=== PATIENT | female | born 1975 | race Caucasian/White ===

== ENCOUNTER 2019-12-25 15:03 | Emergency (ER) | payer OTHER, SELFPAY ==
[2019-12-25] VITALS (7 sets, daily range): BP systolic 120–152; BP diastolic 68–96; PULSE 80–119; RESP 15–20; TEMP 36.8; O2SAT 97–100; BMI 26.6
--- NOTE | 2019-12-25 15:32 | ED_ITS ---
HPI - Abdominal Pain General Chief Complaint: Abdominal Pain Stated Complaint: Pain in gall bladder/appendix Time Seen by Provider: 12/25/19 15:31 Source: patient Mode of arrival: Ambulatory Limitations: no limitations History of Present Illness HPI narrative: CC: epigastric pain HPI: The patient is a 44-year-old female who was seen in the walk-in clinic and after physical exam was thought to have right lower quadrant abdominal tenderness and was sent to the emergency department for an evaluation for possible appendicitis. The patient states that yesterday while at work at approximately 9:00 a.m. she had sharp what she thought was a hunger pain in the center of her abdomen which was partially relieved with eating. However as the day progressed the pain became much worse. The patient describes the discomfort as an a dull achy discomfort that is intermittently sharp. When it is sharp the pain is 10/10 in intensity otherwise it is 6 to 7/10 in intensity. Her discomfort originates in the epigastrium and radiates up into her chest. There is no radiation to her neck jaw shoulders arms. She has had intermittent sweats and chills associated with but no fevers. She denies any fall or injury. The p atient has some mild shortness of breath associated with the discomfort no cough. The only chest pain she is experiences that which radiates up into her chest. She has indigestion and heartburn periodically. She denies ever being told that she had pancreatitis gallstones or an ulcer. She has had no diabetes hypertension myocardial infarction COPD or asthma. She admits to smoking cigarettes rarely drinks alcohol in 2 days ago was using marijuana. Her last bowel movement was yesterday which was normal. She denies any nausea or vomiting diarrhea melena or hematochezia. She has had no troubles urinating. t Related Data Previous Rx's Medication Instructions Recorded dicyclomine 20 mg PO QID PRN #20 tab 12/25/19 hydrocodone-acetaminophen [[place]] 1 tab PO Q6H PRN #10 tab 12/25/19 nitrofurantoin monohyd/m-cryst 100 mg PO Q12H 7 Days #14 cap 12/25/19 [Macrobid] ondansetron HCl [Zofran] 4 mg PO Q6H PRN #12 tab 12/25/19 pantoprazole [Protonix] 40 mg PO DAILY #20 tab 12/25/19 sucralfate [Carafate] 10 ml PO QID PRN #420 ml 12/25/19 Allergies Allergy/AdvReac Type Severity Reaction Status Date / Time Sulfa (Sulfonamide Allergy Verified 12/25/19 15:16 Antibiotics) Review of Systems Review of Systems Narrative: Patient's review of systems were all negative except for those mentioned in the history of present illness. Patient History Medical History Abdominal pain (Acute) Social History Smoking Status: Current every day smoker Smoking Status: Current every day smoker alcohol intake frequency: holidays/special occasions only Substance Use Type: does not use Exam Narrative Exam Narrative: PHYSICAL EXAM: CONSTITUTIONAL: Awake, Alert, Oriented, Coherent, Cooperative. The patient does not appear to be in any acute distress but she seems to have difficulty in mov ing and sitting up in lying down with discomfort in the epigastrium. She does not appear toxic or ill at this time. HEAD: AT/NC EENT: PERRL, FROM of eyes, no discharge or drainage. NOSE:No epistaxis or nasal drainage MOUTH:Oral mucosa is moist and pink, NECK: Supple, no obvious JVD, Trachea is midline without stridor, no palpable LN. SPINE: Palpation of the cervical, Thoracic, Lumbar or Sacral spine reveals no gross deformity or tenderness. No CVA tenderness. THORAX: No deformity, retractions, chest wall tenderness. LUNGS: Clear, symmetrical breath sounds without respiratory distress. HEART: Normal heart tones, regular rhythm and rate without murmur. ABDOMEN: Soft tender with mild guarding in the epigastrium. Bowel sounds are normal. There is no palpable mass noted. EXTREMITIES: No edema, deformity, or tenderness. SKIN: No rash, bruising, petechiae or purpura. NEURO: Awake, alert, oriented, conversive, cranial nerves II-XII are symmetrical , moves all 4 extremities and is ambulatory. MENTAL HEALTH: Does not appear anxious or depressed. Initial Vital Signs Initial Vital Signs: Vital Signs Temperature 98.2 F 12/25/19 15:16 Pulse Rate 119 H 12/25/19 15:16 Respiratory Rate 15 12/25/19 15:16 Blood Pressure 133/96 H 12/25/19 15:16 Pulse Oximetry 98 07/25/20 15:16 Course Course Course Narrative: 1610: The patient is refusing the CT scan and prefers having an ultrasound to check her gallbladder out. The patient refused the chest x- ray. The patient was informed that if the ultrasound is negative for gallstones we may need to perform a CT scan of her abdomen. 1709: On physical exam the patient is not tender in the right lower quadrant or left lower quadrant. The patient initially refused to have a CT scan performed. The patient's ultrasound revealed no evidence of gallstones. However the pancreatic duct appeared to be dilated and she was unable to visua lize the tail of the pancreas. The patient's lipase and liver function tests are all within normal limits. The patient was initially administered pantoprazole for questionable reflux esophagitis and GERD. Her pain is coming back. Her pain an issue the became worse with morphine and Zofran. She will be administered 1 mg of Dilaudid IV 1 g of Carafate as an oral suspension followed by GI cocktail at which time her abdominal pain will be reassessed. 1749: The patient remains very painful holding her epigastrium and upper abdomen. A CT scan of the abdomen with IV contrast has been ordered. 1752: The patient has been very resistant to ordering and performing test to evaluate her pain and discomfort. Troponin will be ordered on the patient as well as repeat EKG to make sure that this is not an atypical presentation of coronary ischemia. A CT scan of the abdomen with IV contrast has been ordered to evaluate the patient's small-bowel: And of vasculature as to causing her pain and discomfort. 1827: The patient's urinalysis is consistent with a urinary tract infection. The patient's ultrasound of her gallbladder and right upper quadrant/ epigastrium revealed: IMPRESSION: 1. No evidence of cholecystitis. 2. Pancreatic ductal dilatation. Finding may indicate underlying neoplasm. Non emergent Gastroenterology consultation recommended. 3. Small hepatic hemangioma. 1850: The CT of the patient's abdomen revealed: IMPRESSION: 1. Non-specific mildly prominent loops of small bowel in the left upper abdomen. No transition point to suggest obstruction. 2. No free fluid. No pneumoperitoneum. 3. Pancreatic duct is minimally prominent similar to the recent ultrasound. Clinical significance of this finding is uncertain. No intrahepatic biliary ductal dilatation. 4. Hypoechoic focus in the right lobe which likely corresponds to the echogenic focus seen on prior ultrasound. This most likely represents a benign hemangioma. -If clinically indicated this can be confirmed with multiphase liver CT or MRI. 5. Small nodule at the anterior bladder dome measuring 1.1 cm. -This is indeterminate. This could represent a small neoplasm versus urachal remnant. Prior CT comparison is would be helpful if available for comparison. This may be further evaluated with ultrasound or MRI. Orders Ordered: Discontinued Medications Al Hydrox/Mg Hydrox/Simethicone 20 ml/ Lidocaine HCl 15 ml 0 ml PO NOW ONE Stop: 12/25/19 17:08 Last Admin: 12/25/19 17:33 Dose: 1 ml Documented by: MARLO Dicyclomine HCl (Bentyl) 20 mg PO NOW ONE Stop: 12/25/19 17:48 Last Admin: 12/25/19 18:30 Dose: 20 mg Documented by: MARLO Sodium Chloride (Normal Saline 0.9%) 1,000 mls @ 1,000 mls/hr IV BOLUS ONE Stop: 12/25/19 18:10 Last Infusion: 12/25/19 19:22 Dose: 0 mls/hr Documented by: Admin: 12/25/19 17:13 Dose: 1,000 mls/hr Documented by: SALVATORE Morphine Sulfate (Morphine) 4 mg IV NOW ONE Stop: 12/25/19 15:48 Last Admin: 12/25/19 15:55 Dose: 4 mg Documented by: POONAM Nitrofurantoin Macrocrystals (Macrobid 100 Mg Capsule) 100 mg PO NOW ONE Stop: 12/25/19 18:30 Last Admin: 12/25/19 18:32 Dose: 100 mg Documented by: MARLO Ondansetron HCl (Zofran) 4 mg IV NOW ONE Stop: 12/25/19 15:48 Last Admin: 12/25/19 15:55 Dose: 4 mg Documented by: POONAM Pantoprazole Sodium (Protonix) 40 mg IV NOW ONE Stop: 12/25/19 15:48 Last Admin: 12/25/19 15:55 Dose: 40 mg Documented by: POONAM Sucralfate (Carafate) [address] [facility] Last Admin: 12/25/19 17:16 Dose: 1 gm Documented by: SALVATORE Vital Signs Vital signs: Vital Signs - 8 hr 12/25/19 15:16 12/25/19 17:07 12/25/19 17:08 Temperature 98.2 F Pulse Rate 119 H 89 92 H Respiratory Rate 15 Blood Pressure 133/96 H 148/68 H Pulse Oximetry 98 99 99 12/25/19 17:30 12/25/19 18:11 12/25/19 18:30 Temperature Pulse Rate 82 80 84 Respiratory Rate Blood Pressure 120/68 Pulse Oximetry 97 99 97 MDM - Abdominal Pain Medical Records Attestation: I reviewed the patient's medical records. Lab Data Attestation: I reviewed the patient's lab results. Result diagrams: 12/25/19 15:30 12/25/19 15:30 Labs: Lab Results 12/25/19 12/25/19 12/25/19 Range/Units 15:18 15:30 15:30 WBC 10.8 (4.5-11.0) X10^3/uL RBC 4.47 (4.0-5.2) X10^6/uL Hgb 14.5 (12.0-16.0) g/dL Hct 42.3 (36-46) % MCV 94.6 (80-100) fL MCH 32.3 (26-34) PG MCHC 34.2 (30-36) % RDW 13.3 (11.6-14.8) % Plt Count 303 (150-400) X10^3/uL Neut % (Auto) 76.5 H (50-75) % Lymph % (Auto) 18.7 L (25-40) % [place] % (Auto) 3.4 (3-14) % Eos % (Auto) 0.6 L (2-4) % Baso % (Auto) 0.8 (0-2) % Neut # (Auto) 8200 H (8926-9852) /uL Lymph # (Auto) 2000 (8164-6359) /uL [place] # (Auto) 400 (0-900) /uL Eos # (Auto) 100 (0-450) /uL Baso # (Auto) 100 (0-100) /uL PT 11.2 (10.1-12.7) SECONDS INR 1.0 (0.9-1.3) APTT 30 (26.4-36.2) SECONDS Sodium (137-145) mmol/L Potassium (3.4-5.1) mmol/L Chloride (98-107) mmol/L Carbon Dioxide (22-32) mmol/L BUN (7-17) mg/dL Creatinine (0.52-1.04) mg/dL Estimated GFR (>60) mL/min BUN/Creatinine Ratio (6-22) Glucose (70-100) mg/dL Calcium (8.4-10.2) mg/dL Total Bilirubin (0.2-1.3) mg/dL AST (14-36) IU/L ALT (<35) IU/L Alkaline Phosphatase (38-126) U/L Total Creatine Kinase (30-135) U/L CK-MB (CK-2) CK-MB (CK-2) Rel Index Troponin I (0.01-0.034) ng/mL Total Protein (6.3-8.2) g/dL Albumin (3.5-5.0) g/dL Globulin (1.7-4.1) g/dL Albumin/Globulin Ratio (1.0-2.8) Lipase (23-300) U/L Urine RBC 1-5/hpf (0-5/HPF) Urine WBC 5-10/hpf H (0-5/HPF) Ur Squamous Epith Cells 1-5 /hpf (0-5/HPF) Calcium Oxalate Crystal Occasional H Amorphous Sediment 1+ Urine Bacteria Many (>30) H (None) Urine Mucus 1+ H (Negative) Ur Culture Indicated? Specimen cultured 12/25/19 12/25/19 Range/Units 15:30 18:20 WBC (4.5-11.0) X10^3/uL RBC (4.0-5.2) X10^6/uL Hgb (12.0-16.0) g/dL Hct (36-46) % MCV (80-100) fL MCH (26-34) PG MCHC (30-36) % RDW (11.6-14.8) % Plt Count (150-400) X10^3/uL Neut % (Auto) (50-75) % Lymph % (Auto) (25-40) % [place] % (Auto) (3-14) % Eos % (Auto) (2-4) % Baso % (Auto) (0-2) % Neut # (Auto) (1630-1481) /uL Lymph # (Auto) (4830-7182) /uL [place] # (Auto) (0-900) /uL Eos # (Auto) (0-450) /uL Baso # (Auto) (0-100) /uL PT (10.1-12.7) SECONDS INR (0.9-1.3) APTT (26.4-36.2) SECONDS Sodium 137 (137-145) mmol/L Potassium 3.6 (3.4-5.1) mmol/L Chloride 105 (98-107) mmol/L Carbon Dioxide 26 (22-32) mmol/L BUN 9 (7-17) mg/dL Creatinine 0.68 (0.52-1.04) mg/dL Estimated GFR > 60.0 (>60) mL/min BUN/Creatinine Ratio 13.2 (6-22) Glucose 123 H (70-100) mg/dL Calcium 10.1 (8.4-10.2) mg/dL Total Bilirubin 0.5 (0.2-1.3) mg/dL AST 26 (14-36) IU/L ALT 19 (<35) IU/L Alkaline Phosphatase 60 (38-126) U/L Total Creatine Kinase 57 (30-135) U/L CK-MB (CK-2) TNP CK-MB (CK-2) Rel Index TNP Troponin I < 0.012 (0.01-0.034) ng/mL Total Protein 7.0 (6.3-8.2) g/dL Albumin 4.5 (3.5-5.0) g/dL Globulin 2.5 (1.7-4.1) g/dL Albumin/Globulin Ratio 1.8 (1.0-2.8) Lipase 41 (23-300) U/L Urine RBC (0-5/HPF) Urine WBC (0-5/HPF) Ur Squamous Epith Cells (0-5/HPF) Calcium Oxalate Crystal Amorphous Sediment Urine Bacteria (None) Urine Mucus (Negative) Ur Culture Indicated? Point of care testing: Urine Dip Bedside Urine Glucose Negative Bedside Urine Bilirubin + 1 Bedside Urine Ketone + 15 Urine Specific [place] 1.025 Bedside Urine Occult Blood +++ Bedside Urine pH 6.0 Bedside Urine Protein - Negative Bedside Urine Urobilinogen - Negative Bedside Urine Nitrite + Positive Bedside Urine Leukocytes + 70 Esterase ECG Data Attestation: I personally reviewed and interpreted this ECG as follows: Interpretation: 1533: The patient's EKG obtained at 3:22 p.m. reveals a normal sinus rhythm with a ventricular rate of 85 intervals are normal QTC is 442 milliseconds axis is normal. The patient has no acute diagnostic ST segment changes. The EKG otherwise looks normal. Because of the patient's persistent pain and discomfort in the epigastrium a repeat EKG was obtained as well as a troponin to rule out the possibility that the patient may be experiencing inferior wall ischemia. Her 2nd EKG obtained at 6:12 p.m. revealed a normal sinus rhythm with a ventricular rate of 73 her intervals were normal with a QTC of 436 milliseconds her axis is normal. The patient had a biphasic T-wave in lead V1 and V2 with Q-waves in V1 and V2 this suggests that the patient has a and septal NH age indeterminate. The patient has a small R-wave in V3. Discharge Plan Departure Patient Disposition: Home Clinical Impression: Epigastric abdominal pain, Atypical chest pain Acute gastritis Qualifiers: Gastritis type: unspecified gastritis Gastritis bleeding: without bleeding Qualified Code(s): K29.00 - Acute gastritis without bleeding Urinary tract infection Qualifiers: Urinary tract infection type: site unspecified Hematuria presence: without hematuria Qualified Code(s): N39.0 - Urinary tract infection, site not specified Discharge Date/Time: 12/25/19 19:23 Instructions: [place] Diet, DI for Gastritis, DI for Abdominal Pain-Adult Activity Restrictions/Additional Instructions: 1. You need to follow-up with your primary care physician to be referred to a office services representative for possible scoping of your stomach and colon. 2. If you develop worsening severe pain and discomfort, uncontrolled nausea and vomiting unable to keep liquids or medications down, profuse diarrhea, vomiting blood, rectal bleeding or black tarry stools, dizziness, lightheadedness, fever, worsening chest pain passing-out you need to return to the emergency department or proceed to the nearest emergency department. 3. Take the Bentyl as prescribed for abdominal pain and cramps. 4. Take the Protonix as prescribed to help decrease the acid secretion which can cause should have increased pain and discomfort. 5. Take the Carafate whenever your having epigastric pain and discomfort up to 4 times per day as prescribed 6. Take the Zofran up to 4 times per day as necessary for nausea and vomiting. If you develop worsening pain and discomfort that is uncontrolled by these medications you need to return to the emergency department to be further evaluat ed. Prescriptions: New sucralfate [Carafate] 100 mg/mL suspension 10 ml PO QID PRN (Reason: abdominal pain idigestion and heart burn) Qty: 420 RF: 0 pantoprazole [Protonix] 40 mg tablet,delayed release (DR/EC) 40 mg PO DAILY Qty: 20 RF: 0 dicyclomine 20 mg tablet 20 mg PO QID PRN (Reason: abdominal pain and cramps) Qty: 20 RF: 0 ondansetron HCl [Zofran] 4 mg tablet 4 mg PO Q6H PRN (Reason: nausea and vomiting) Qty: 12 RF: 0 nitrofurantoin monohyd/m-cryst [Macrobid] 100 mg capsule 100 mg PO Q12H 7 Days Qty: 14 RF: 0 hydrocodone-acetaminophen [[place]] 5-325 mg tablet 1 tab PO Q6H PRN (Reason: pain) Qty: 10 RF: 0 Referrals: Kal Alves MD [Primary Care Provider] -
[2019-12-25 15:36] LABS: Add Manual Diff / Slide Review NO; Basophils Absolute Auto 100 /uL (0-100); Basophils Percent Auto 0.8 % (0-2); Eosinophils Absolute Auto 100 /uL (0-450); Eosinophils Percent Auto 0.6 % (2-4); Hematocrit 42.3 % (36-46); Hemoglobin 14.5 g/dL (12.0-16.0); Lymphocytes Absolute Auto 2000 /uL (1100-4500); Lymphocytes Percent Auto 18.7 % (25-40); Mean Corpuscular HGB Conc 34.2 % (30-36); Mean Corpuscular Hemoglobin 32.3 PG (26-34); Mean Corpuscular Volume 94.6 fL (80-100); Monocytes Absolute Auto 400 /uL (0-900); Monocytes Percent Auto 3.4 % (3-14); Neutrophils Absolute Auto 8200 /uL (1500-7000); Neutrophils Percent Auto 76.5 % (50-75); Platelet Count 303 X10^3/uL (150-400); Red Blood Cell Count 4.47 X10^6/uL (4.0-5.2); Red Cell Distribution Width 13.3 % (11.6-14.8); White Blood Cell Count 10.8 X10^3/uL (4.5-11.0)
[2019-12-25 15:45] LABS: Prothrombin Time 11.2 SECONDS (10.1-12.7)
[2019-12-25 15:47] LABS: PTT Partial Thromboplastin Tim 30 SECONDS (26.4-36.2)
[2019-12-25 15:49] LABS: Alanine Aminotransferase 19 IU/L (<35); Albumin 4.5 g/dL (3.5-5.0); Albumin Globulin Ratio 1.8 (1.0-2.8); Alkaline Phosphatase 60 U/L (38-126); Aspartate Aminotransferase 26 IU/L (14-36); BUN Creatinine Ratio 13.2 (6-22); Bilirubin Total 0.5 mg/dL (0.2-1.3); Blood Urea Nitrogen 9 mg/dL (7-17); Calcium 10.1 mg/dL (8.4-10.2); Carbon Dioxide 26 mmol/L (22-32); Chloride 105 mmol/L (98-107); Estimated Glomerular Filt Rate > 60.0 mL/min (>60); Globulin 2.5 g/dL (1.7-4.1); Glucose 123 mg/dL (70-100); HEMOLYSIS < 15 (0-50); Lipase 41 U/L (23-300); Potassium 3.6 mmol/L (3.4-5.1); Sodium 137 mmol/L (137-145)
[2019-12-25] MEDS: MORPHINE 4 MG/ML INJ IV (15:55)
[2019-12-25] MEDS: ONDANSETRON 4 MG/2 ML INJ IV (15:55)
[2019-12-25] MEDS: PANTOPRAZOLE 40 MG VIAL IV (15:55)
--- NOTE | 2019-12-25 16:08 | DI.US.S_ITS ---
PROCEDURE: US ABDOMEN LIMITED INDICATIONS: EPIGASTRIC PAIN, RADIATING INTO CHEST, R/O GALLSTONES TECHNIQUE: Real-time scanning was performed of the abdominal and retroperitoneal organs, with image documentation. COMPARISON: None. FINDINGS: Liver is normal in size . There is a 9 mm hyperechoic focus within the right hepatic lobe posterior inferiorly. No biliary ductal dilatation. Gallbladder is within normal limits. Pancreatic duct is mildly distended at 3.6 mm. IMPRESSION: 1. No evidence of cholecystitis. 2. Pancreatic ductal dilatation. Finding may indicate underlying neoplasm. Non emergent Gastroenterology consultation recommended. 3. Small hepatic hemangioma. Dictated by: Kathi Oreilly M.D. on 12/25/2019 at 16:22 Approved by: Katih Oreilly M.D. on 12/25/2019 at 16:24
[2019-12-25] MEDS: HYDROMORPHONE 1 MG INJ (17:12)
[2019-12-25 17:13] LABS: Amorphous Sediment Urine 1+; Bacteria Urine Many (>30); Calcium Oxalate Crystals Urine Occasional; Mucus Urine 1+ (Negative); RBC Urine 1-5/HPF (0-5/HPF); Squamous Epithelial Cell Urine 1-5 /HPF (0-5/HPF); WBC Urine 5-10/HPF (0-5/HPF)
[2019-12-25] MEDS: SODIUM CHLORIDE 0.9% 1,000 ML 1000 ML IV (17:13)
[2019-12-25 17:14] LABS: Culture Indicated Urine Specimen Cultured
[2019-12-25] MEDS: SUCRALFATE 1 GM/10 ML ORAL SUSP PO (17:16)
[2019-12-25] MEDS: MAG HYDROX/ALUMINUM/SIMETH SUS 20 ML, LIDOCAINE VISCOUS 2% 15 ML PO (17:33)
--- NOTE | 2019-12-25 17:47 | DI.CT.S_ITS ---
PROCEDURE: CT ABDOMEN PELVIS W CON INDICATIONS: Persistent epigastric and central abdominal pain, dialated d TECHNIQUE: After the administration of intravenous contrast, 5 mm thick sections acquired from the diaphragm to the symphysis. 5 mm coronal and sagittal reformats were acquired. For radiation dose reduction, the following was used: automated exposure control, adjustment of mA and/or kV according to patient size. COMPARISON: [facility], US, US ABDOMEN LIMITED, 12/25/2019, 16:43. FINDINGS: Image quality: Excellent. ABDOMEN: Lung bases: Lung bases are clear. Heart size is normal. Solid organs: Liver is normal in size. Hypodense focus in the inferior right lobe of the liver measuring 0.8 cm, (2/31), likely corresponding to the echogenic focus seen on ultrasound. Gallbladder is unremarkable. No calcified gallstones. Biliary system is non dilated. Pancreas enhances normally. Pancreatic duct is minimally prominent. Spleen is normal in size and enhancement. No adrenal nodules. Kidneys demonstrate normal size and enhancement, without hydronephrosis. Peritoneum and bowel: Mildly prominent loops of small bowel in the left upper abdomen. No discrete transition point. No free fluid. No pneumoperitoneum. Appendix is at the upper limits of normal in caliber. Nodes and vessels: No retroperitoneal or mesenteric adenopathy by size criteria. Aorta and inferior vena cava are normal in size. Miscellaneous: No ventral hernias. PELVIS: Genitourinary: There is a nodule at the anterior bladder dome measuring 1.1 cm, (5/39). Uterus is unremarkable. Diaphragm is in place. Miscellaneous: No inguinal hernias or adenopathy. Bones: No suspicious bony lesions. No vertebral body compression fractures. IMPRESSION: 1. Non-specific mildly prominent loops of small bowel in the left upper abdomen. No transition point to suggest obstruction. 2. No free fluid. No pneumoperitoneum. 3. Pancreatic duct is minimally prominent similar to the recent ultrasound. Clinical significance of this finding is uncertain. No intrahepatic biliary ductal dilatation. 4. Hypoechoic focus in the right lobe which likely corresponds to the echogenic focus seen on prior ultrasound. This most likely represents a benign hemangioma. -If clinically indicated this can be confirmed with multiphase liver CT or MRI. 5. Small nodule at the anterior bladder dome measuring 1.1 cm. -This is indeterminate. This could represent a small neoplasm versus urachal remnant. Prior CT comparison is would be helpful if available for comparison. This may be further evaluated with ultrasound or MRI. Dictated by: Masood Reynolds M.D. on 12/25/2019 at 18:18 Approved by: Masood Reynolds M.D. on 12/25/2019 at 18:31
[2019-12-25] MEDS: DICYCLOMINE 10 MG CAPSULE 20 MG PO (18:30)
[2019-12-25] MEDS: NITROFURANTOIN ER 100 MG CAPSULE PO (18:32)
[2019-12-25 18:38] LABS: Creatine Kinase 57 U/L (30-135)
[2019-12-25 18:51] LABS: Troponin I < 0.012 ng/mL (0.01-0.034)
== END 2019-12-25 19:23 | disposition home or self-care (01) ==
PROVIDERS: Emergency Provider Emergency Medicine; Family Provider Family Medicine; PCP Family Medicine
DX: R07.89 Other chest pain (principal); R10.13 Epigastric pain; K29.00 Acute gastritis without bleeding; N39.0 Urinary tract infection, site not specified
CPT/HCPCS: 36415; 74177; 76705; 80053; 81003; 81015; 82550; 83690; 84484; 85025; 85610; 85730; 87077; 87086; 87186; 93005; 96361; 96374; 96375; 99284; 99285; C9113; J1170; J2270; J2405; Q9967

== ENCOUNTER → 2020-10-03 18:31 | Outpatient (CLI) | payer OTHER, MEDICAID, SELFPAY | PROVIDERS: PCP Nurse Practitioner Family; Visit Provider Physician Assistant | DX: N30.01 Acute cystitis with hematuria (principal) | CPT/HCPCS: 87077; 87086; 87186 ==

== ENCOUNTER → 2021-07-19 17:02 | Outpatient (CLI) | payer OTHER, MEDICAID, SELFPAY ==
--- NOTE | 2021-07-19 | DI.RAD.S_ITS ---
PROCEDURE: XR FOOT RT MIN 3V INDICATIONS: Pain in right foot TECHNIQUE: 3 views of the foot were acquired. COMPARISON: [facility], , FOOT 3V LEFT, 10/08/2010, 11:12. FINDINGS: Bones: No fractures or dislocations. [id number] 1st MTP joint osteoarthritic changes are seen with joint space narrowing, subchondral sclerosis and cyst formation. No suspicious bony lesions. Soft tissues: No tibiotalar joint effusion. Achilles tendon appears normal. IMPRESSION: [id number] 1st MTP joint osteoarthritis. No right foot fracture or dislocation. Dictated by: Angel Reilly M.D. on 07/19/2021 at 17:18 Approved by: Angel Reilly M.D. on 07/19/2021 at 17:18
== END ==
PROVIDERS: PCP Nurse Practitioner Family; Referring Provider Family Medicine; Visit Provider Family Medicine
DX: M19.071 Primary osteoarthritis, right ankle and foot (principal); M79.671 Pain in right foot
CPT/HCPCS: 73630

== ENCOUNTER → 2023-07-10 17:07 | Outpatient (CLI) | payer OTHER, MEDICAID, SELFPAY ==
--- NOTE | 2023-07-10 | DI.RAD.S_ITS ---
PROCEDURE: XR TIBIA FIBULA LT 2V INDICATIONS: PAIN IN TIBIA TECHNIQUE: 3 views of the tibia and fibula were acquired. COMPARISON: None. FINDINGS: Bones: No fractures or dislocations. No suspicious bony lesions. Soft tissues: No suspicious soft tissue calcifications or masses. IMPRESSION: No acute bony abnormality. Dictated by: Shlomo Ravi M.D. on 07/11/2023 at 8:42 Approved by: Shlomo Ravi M.D. on 07/11/2023 at 8:43
== END ==
PROVIDERS: PCP Nurse Practitioner Family; Referring Provider Registered Nurse; Visit Provider Registered Nurse
DX: M89.8X6 Other specified disorders of bone, lower leg (principal)
CPT/HCPCS: 73590

== ENCOUNTER 2023-11-30 15:26 | Emergency (ER) | payer OTHER, SELFPAY ==
[2023-11-30] VITALS (12 sets, daily range): BP systolic 136–175; BP diastolic 67–94; PULSE 117–144; RESP 11–31; TEMP 36.9; O2SAT 91–99; BMI 31.3
[2023-11-30 16:03] LABS: Add Manual Diff / Slide Review NO; Basophils Absolute Auto 100 /uL (0-100); Basophils Percent Auto 0.8 % (0-2); Eosinophils Absolute Auto 0 /uL (0-450); Eosinophils Percent Auto 0.1 % (2-4); Hematocrit 42.8 % (36-46); Hemoglobin 14.7 g/dL (12.0-16.0); Lymphocytes Absolute Auto 3100 /uL (1100-4500); Lymphocytes Percent Auto 38.3 % (25-40); Mean Corpuscular HGB Conc 34.5 % (30-36); Mean Corpuscular Hemoglobin 31.4 PG (26-34); Mean Corpuscular Volume 91.2 fL (80-100); Monocytes Absolute Auto 400 /uL (0-900); Monocytes Percent Auto 4.5 % (3-14); Neutrophils Absolute Auto 4600 /uL (1500-7000); Neutrophils Percent Auto 56.3 % (50-75); Platelet Count 254 X10^3/uL (150-400); Red Blood Cell Count 4.69 X10^6/uL (4.0-5.2); Red Cell Distribution Width 14.9 % (11.6-14.8); White Blood Cell Count 8.1 X10^3/uL (4.5-11.0)
--- NOTE | 2023-11-30 16:08 | EKG_ITS ---
[address] [address] Test Date: 2023-11-30 Pat Name: Nadja Zelaya Department: Room: Gender: Female Unit Director: HARRIS : 1975 Requested By: Order Number: [id number] Reading MD: Conner Nava Measurements Intervals [place] Rate: 135 P: 67 [place]: 122 QRS: 64 QRSD: 64 T: 58 QT: 300 QTc: 450 Interpretive Statements Sinus tachycardia Electronically Signed On 11-30-2023 17:09:34 PDT by Conner Nava
[2023-11-30 16:12] LABS: Acetaminophen < 10 ug/mL (10-30); Alanine Aminotransferase 36 IU/L (<35); Albumin 4.4 g/dL (3.5-5.0); Albumin Globulin Ratio 1.6 (1.0-2.8); Alkaline Phosphatase 74 U/L (38-126); Aspartate Aminotransferase 61 IU/L (14-36); BUN Creatinine Ratio 16.8 (6-22); Bilirubin Total 0.5 mg/dL (0.2-1.3); Blood Urea Nitrogen 17 mg/dL (7-17); Calcium 7.8 mg/dL (8.4-10.2); Carbon Dioxide 19 mmol/L (22-32); Chloride 109 mmol/L (98-107); Estimated Glomerular Filt Rate > 60 mL/min (>60); Globulin 2.7 g/dL (1.7-4.1); Glucose 147 mg/dL (70-100); HEMOLYSIS 25 (0-50); Potassium 4.4 mmol/L (3.4-5.1); Salicylate < 1.0 mg/dL (<20); Sodium 141 mmol/L (137-145); Total Protein 7.1 g/dL (6.3-8.2)
[2023-11-30 16:21] LABS: Ethanol (ETOH) 392 mg/dL
[2023-11-30 16:30] LABS: Lipase 119 U/L (23-300); Magnesium 2.2 mg/dL (1.6-2.3)
[2023-11-30] MEDS: ONDANSETRON 4 MG/2 ML INJ IV (16:40)
[2023-11-30] MEDS: LORazepam 0.5 MG/0.25 ML SYRINGE 1 MG IV (16:40)
[2023-11-30] MEDS: SODIUM CHLORIDE 0.9% 1,000 ML 1000 ML IV (16:41)
[2023-11-30 16:46] LABS: Free T4, Direct Thyroxine 0.95 ng/dL (0.78-2.19)
[2023-11-30 16:48] LABS: Adenovirus Not Detected (Not Detect); B. parapertussis Not Detected (Not Detecte); Bordetella pertussis Not Detected (Not Detect); Chlamydophila pneumoniae Not Detected (Not Detect); Coronavirus 229E Not Detected (Not Detect); Coronavirus HKU1 Not Detected (Not Detect); Coronavirus NL 63 Not Detected (Not Detect); Coronavirus OC43 Not Detected (Not Detect); Human Metapneumovirus Not Detected (Not Detect); Human Rhinovirus/Enterovirus Not Detected (Not Detect); Influenza A Not Detected (Not Detect); Influenza B Not Detected (Not Detect); Mycoplasma pneumoniae Not Detected (Not Detect); Parainfluenza Virus 1 Not Detected (Not Detect); Parainfluenza Virus 2 Not Detected (Not Detect); Parainfluenza Virus 3 Not Detected (Not Detect); Parainfluenza Virus 4 Not Detected (Not Detect); Respiratory Syncytial Virus Not Detected (Not Detect); SARS- CoV-2 Not Detected (Not Detecte)
[2023-11-30 16:48] LABS: Bacteria Urine Many (>30); RBC Urine 0-1/HPF (0-5/HPF); Urine Volume 10mL (spun); WBC Urine 0-1/HPF (0-5/HPF)
[2023-11-30 16:49] LABS: Squamous Epithelial Cell Urine 5-10 /HPF (0-5/HPF)
[2023-11-30 16:50] LABS: Culture Indicated Urine Specimen Cultured
[2023-11-30 16:52] LABS: Ur Creatinine Normal (Normal); Ur Specific Gravity Normal (Normal); Urine pH Normal (Normal)
[2023-11-30 16:53] LABS: UR Morphine/Opiate cutoff 300 Negative (Negative); Urine Amphetamines Negative (Negative); Urine Barbiturates Negative (Negative); Urine Benzodiazepines Negative (Negative); Urine Cocaine Negative (Negative); Urine MDMA Negative (Negative); Urine Methadone Negative (Negative); Urine Methamphetamines Negative (Negative); Urine Oxycodone Negative (Negative); Urine Phencyclidine Negative (Negative); Urine Tetrahydrocannabinol Negative (Negative); Urine Tricyclic Antidepressant Negative (Negative)
[2023-11-30 17:00] LABS: Thyroid Stimulating Hormone 0.522 uIU/mL (0.47-4.68)
--- NOTE | 2023-11-30 17:18 | ED.NAVMDI ---
HPI - Nausea/Vomiting/Diarrhea General Chief complaint: Nausea/Vomiting/Diarrhea Stated complaint: Dehydrated, Intoxicated Time Seen by Provider: 11/30/23 15:59 Source: patient Mode of arrival: Ambulatory History of Present Illness HPI Narrative: 48-year-old female with a history of alcohol abuse who arrives by private vehicle accompanied by her daughter and a family member complaining of feeling generally weak and unwell. She says she ?can not keep anything down. Shortly after that though she tells me she has not vomiting, she says she has not had a bowel movement in 1 day, she has not having abdominal pain. She feels generally weak and unwell. Family report that she has been isolating for about a week after having COVID. They are unclear about how much she is drinking. She says she has been drinking about 2 small airplane bottles of alcohol per day. She denies suicidal ideation she denies hallucinations. Says that she last drank about 8 hours ago. Related Data Previous Rx's Medication Instructions Recorded oxycodone 5 mg tablet 5 mg PO Q4H PRN pain #10 tabs 07/27/20 fluconazole 150 mg tablet 150 mg PO ONCE #1 tab 10/03/20 (Diflucan) phenazopyridine 100 mg tablet 100 mg PO TID PRN pain 6 doses #6 10/03/20 (Pyridium) tabs Allergies Allergy/AdvReac Type Severity Reaction Status Date / Time Sulfa (Sulfonamide Allergy Verified 11/30/23 15:47 Antibiotics) Patient History Medical History (Updated 10/03/20 @ 16:43 by Katy Mcmullen PA-C) UTI (urinary tract infection) Chronic back pain (~2006) Chicken pox (~1978) Abdominal pain Surgical History (Updated 07/21/20 @ 20:24 by Ida Villalobos) Anesthesia History of umbilical hernia repair (~1985) Social History Smoking Status: Current every day smoker Smoking Status: Current every day smoker alcohol intake frequency: 0-2 drinks per day Alcohol type: hard liquor Substance Use Type: marijuana Exam Initial Vital Signs Initial Vital Signs: Vital Signs Temperature 98.5 F 11/30/23 15:41 Pulse Rate 144 H 11/30/23 15:41 Respiratory Rate 18 11/30/23 15:41 Blood Pressure 136/90 11/30/23 15:41 Pulse Oximetry 97 11/30/23 15:41 Oxygen Delivery Method Room Air 11/30/23 15:41 Tachycardia noted, vital signs are otherwise unremarkable Const Other: Alert, not tremulous, appears to be in no distress somewhat vague historian ALIS SNELL Other: Normocephalic atraumatic oral mucosa is moist pupils are equal round and reactive extraocular movements are intact Resp Other: Lungs are clear respiratory effort is normal Cardio Other: Tachycardic with normal heart sounds GI Other: Normal bowel sounds soft and nontender Skin Other: Skin is warm and dry without rash Neuro Other: Alert and oriented, speech is fluent, no gross motor deficits Course Orders Ordered: ED Orders 11/30/23 15:49 Acetaminophen Stat Complete Blood Count AUTO DIFF Stat Comprehensive Metabolic Panel Stat Ethanol (ETOH) Stat Free T4, Direct Thyroxine Stat Lipase Stat Magnesium Stat Respiratory Panel (Film Array) Stat Salicylate Stat Thyroid Stimulating Hormone Stat 11/30/23 16:08 EKG-12 Lead Stat 11/30/23 16:27 Urine Culture Stat Urine Drug Screen, Rapid Stat Urine Microscopic Stat Discontinued Medications Sodium Chloride (Normal Saline 0.9%) 1,000 mls @ 1,000 mls/hr IV BOLUS ONE Stop: 11/30/23 17:11 Last Admin: 11/30/23 16:41 Dose: 1,000 mls/hr Documented By: SPF Lorazepam (Lorazepam 0.5 Mg/0.25 Ml Syringe) 1 mg IV NOW ONE Stop: 11/30/23 16:30 Last Admin: 11/30/23 16:40 Dose: 1 mg Documented By: SPF Ondansetron HCl (Ondansetron 4 Mg/2 Ml Inj) 4 mg IV NOW ONE Stop: 11/30/23 16:35 Last Admin: 11/30/23 16:40 Dose: 4 mg Documented By: SPF Reevaluation(s) Reevaluation #1: Patient is alert has no complaints tachycardia is improved although still tachycardic at 120. Discussed her alcohol levels and my concern that alcohol use is the primary reason that she is here today. Patient understands and wants to go home does not want to go to detox today. Family has requested social media community manager discussed treatment options with her for reference later. Patient was advised to avoid alcohol use Vital Signs Vital signs: Vital Signs - 8 hr 11/30/23 15:41 11/30/23 15:53 11/30/23 15:53 Temperature 98.5 F Pulse Rate 144 H 144 H Respiratory Rate 18 24 Blood Pressure 136/90 139/67 Pulse Oximetry 97 96 Oxygen Delivery Method Room Air 11/30/23 16:00 11/30/23 16:00 11/30/23 16:27 Temperature Pulse Rate 136 H 143 H Respiratory Rate 28 H 14 Blood Pressure 158/74 H Pulse Oximetry 96 97 Oxygen Delivery Method Room Air 11/30/23 16:30 11/30/23 16:30 Temperature Pulse Rate 134 H Respiratory Rate 12 Blood Pressure 159/82 H Pulse Oximetry 97 Oxygen Delivery Method Room Air MDM - Nausea/Vomiting/Diarrhea Lab Data Lab results narrative: Hypocalcemic at 7.8. CBC unremarkable, CMP is otherwise unremarkable ethanol 392 other toxicologic screen negative 11/30/23 15:49 11/30/23 15:49 Labs: Lab Results 11/30/23 11/30/23 Range/Units 15:49 16:27 WBC 8.1 (4.5-11.0) X10^3/uL RBC 4.69 (4.0-5.2) X10^6/uL Hgb 14.7 (12.0-16.0) g/dL Hct 42.8 (36-46) % MCV 91.2 (80-100) fL MCH 31.4 (26-34) PG MCHC 34.5 (30-36) % RDW 14.9 H (11.6-14.8) % Plt Count 254 (150-400) X10^3/uL Neut % (Auto) 56.3 (50-75) % Lymph % (Auto) 38.3 (25-40) % [place] % (Auto) 4.5 (3-14) % Eos % (Auto) 0.1 L (2-4) % Baso % (Auto) 0.8 (0-2) % Neut # (Auto) 4600 (8868-1550) /uL Lymph # (Auto) 3100 (9878-8743) /uL [place] # (Auto) 400 (0-900) /uL Eos # (Auto) 0 (0-450) /uL Baso # (Auto) 100 (0-100) /uL Sodium 141 (137-145) mmol/L Potassium 4.4 (3.4-5.1) mmol/L Chloride 109 H (98-107) mmol/L Carbon Dioxide 19 L (22-32) mmol/L BUN 17 (7-17) mg/dL Creatinine 1.01 (0.52-1.04) mg/dL Estimated GFR > 60 (>60) mL/min BUN/Creatinine Ratio 16.8 (6-22) Glucose 147 H (70-100) mg/dL Calcium 7.8 L (8.4-10.2) mg/dL Magnesium 2.2 (1.6-2.3) mg/dL Total Bilirubin 0.5 (0.2-1.3) mg/dL AST 61 H (14-36) IU/L ALT 36 H (<35) IU/L Alkaline Phosphatase 74 (38-126) U/L Total Protein 7.1 (6.3-8.2) g/dL Albumin 4.4 (3.5-5.0) g/dL Globulin 2.7 (1.7-4.1) g/dL Albumin/Globulin Ratio 1.6 (1.0-2.8) Lipase 119 (23-300) U/L TSH 0.522 (0.47-4.68) uIU/mL Free T4 0.95 (0.78-2.19) ng/dL Urine RBC 0-1/hpf (0-5/HPF) Urine WBC 0-1/hpf (0-5/HPF) Ur Squamous Epith Cells 5-10 /hpf H (0-5/HPF) Urine Bacteria Many (>30) H (None) Ur Culture Indicated? Specimen cultured Vol Urine Centrifuged 10ml (spun) Salicylates < 1.0 (<20) mg/dL U Opiates 300ng/mL cut Negative (Negative) Ur Oxycodone Screen Negative (Negative) Urine Methadone Screen Negative (Negative) Acetaminophen < 10 (10-30) ug/mL Ur Barbiturates Screen Negative (Negative) U Tricyclic Antidepress Negative (Negative) Ur Phencyclidine Scrn Negative (Negative) Ur Amphetamines Screen Negative (Negative) U Methamphetamines Scrn Negative (Negative) Ur MDMA Scrn (Ecstasy) Negative (Negative) U Benzodiazepines Scrn Negative (Negative) Urine Cocaine Screen Negative (Negative) U Marijuana (THC) Screen Negative (Negative) Urine pH Normal (Normal) Urine Specific [place] Normal (Normal) Ethyl Alcohol 392 H ( - 10) mg/dL Ur Creatinine Normal (Normal) Chlamy pneumoniae PCR Not detected (Not Detect) Adenovirus (PCR) Not detected (Not Detect) B.parapertussis DNA PCR Not detected (Not Detecte) Coronavirus OC43 (PCR) Not detected (Not Detect) Coronavirus HKU1 (PCR) Not detected (Not Detect) Coronavirus 229E (PCR) Not detected (Not Detect) SARS-CoV-2 (PCR) Not detected (Not Detecte) Coronavirus NL63 (PCR) Not detected (Not Detect) Human Metapneumovir PCR Not detected (Not Detect) Influenza Type A (PCR) Not detected (Not Detect) Influenza Type B (PCR) Not detected (Not Detect) M. pneumoniae (PCR) Not detected (Not Detect) Parainfluenza 1 (PCR) Not detected (Not Detect) Parainfluenza 2 (PCR) Not detected (Not Detect) Parainfluenza 3 (PCR) Not detected (Not Detect) Parainfluenza 4 (PCR) Not detected (Not Detect) RSV (PCR) Not detected (Not Detect) Entero/Rhino (PCR) Not detected (Not Detect) Point of Care Testing Test Results Negative Urine Dip Bedside Urine Glucose Negative Bedside Urine Bilirubin - Negative Bedside Urine Ketone - Negative Urine Specific [place] 1.020 Bedside Urine Occult Blood +++ Bedside Urine pH 6.0 Bedside Urine Protein +/- 15 Bedside Urine Urobilinogen - Negative Bedside Urine Nitrite + Positive Bedside Urine Leukocytes - Negative Esterase ECG Data Interpretation: ECG shows sinus tachycardia at 1:[address] segment changes intervals are normal MDM Narrative Medical decision making narrative: 48-year-old female brought in by family with generalized weakness and malaise. They are concerned that she has recently been drinking heavily which indeed appears to be the case. He is tachycardic but not tremulous not tachycardic does not appear to be in acute withdrawal at present. Workup was otherwise reassuring without evidence of toxidrome other than alcohol use sepsis, anemia, or other acute condition required hospitalization. We discussed the possibility of the patient going to detox she does not wish to do this at this point and she appears to be competent to make that choice. Discharge Plan Departure Prescriptions: No Action phenazopyridine [Pyridium] 100 mg tablet 100 mg PO TID PRN (Reason: pain) 0 Days Qty: 6 0RF fluconazole [Diflucan] 150 mg tablet 150 mg PO ONCE Qty: 1 0RF Rx Instructions: as a single dose oxycodone 5 mg tablet 5 mg PO Q4H PRN (Reason: pain) Qty: 10 0RF Referrals: Moon Sanchez ARNP [Primary Care Provider] -
[2023-11-30] MEDS: CALCIUM GLUCONATE 4.65 MEQ in SODIUM CHLORIDE 0.9% 50 ML 180 MEQ IV (18:13)
--- NOTE | 2023-11-30 19:17 | CM.SWNOTE ---
ED CURRICULUM DEVELOPMENT MANAGER Note: Patient is a 48yo female, resident of [place], presented to the ED for nausea, vomiting, diarrhea and dehydration. Patient?s primary care provider is CHERIE Wells and insurance is [id number]. CURRICULUM DEVELOPMENT MANAGER was consulted due to pt and pt?s family requests for [facility] outpatient resources upon discharge from the ED. Per ED Provider, pt is medically cleared for discharge. ED CURRICULUM DEVELOPMENT MANAGER met with patient in the room, introduced self and role. Present in the room is pt?s mother, Demarcus Recinos. ED CURRICULUM DEVELOPMENT MANAGER discussed resources for pt upon discharge for outpatient [facility] services and detox centers, provided list of the prior to pt. Pt was appreciative. Pt inquired about services outside of the state. CURRICULUM DEVELOPMENT MANAGER discussed calling pt?s insurer and requesting to speak with a rn patient care to inquire about [facility] services outside of the state. Pt denied any other discharge needs at this time. Plan: Pt to discharge home with family to transport. Pt to follow up with [facility] services if applicable, pt denied referral at this time. ALBERT Cohen
== END 2023-11-30 19:32 | disposition home or self-care (01) ==
PROVIDERS: Emergency Medicine; Emergency Provider Emergency Medicine; PCP Nurse Practitioner Family
DX: F10.129 Alcohol abuse with intoxication, unspecified (principal); Y90.8 Blood alcohol level of 240 mg/100 ml or more; Z86.16 Personal history of COVID-19
CPT/HCPCS: 36415; 80053; 80305; 80320; 80329; 81003; 81015; 81025; 83690; 83735; 84439; 84443; 85025; 87077; 87086; 87186; 87633; 93005; 96361; 96374; 96375; 99284; G0480; J0612; J2060; J2405

== ENCOUNTER 2023-12-03 10:48 | Emergency (ER) | payer OTHER, SELFPAY ==
[2023-12-03] VITALS (10 sets, daily range): BP systolic 153–186; BP diastolic 81–106; PULSE 98–131; RESP 14–21; TEMP 36.9; O2SAT 96–100
--- NOTE | 2023-12-03 11:00 | EKG_ITS ---
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
--- NOTE | 2023-12-03 11:06 | ED.GENADULT ---
HPI - General Adult General Chief complaint: Toxicology Problem Stated complaint: cant eat Time Seen by Provider: 12/03/23 10:58 Source: patient Mode of arrival: Ambulatory Limitations: no limitations History of Present Illness HPI narrative: Patient is a 48-year-old female. Has a significant history of alcohol abuse. Was seen here in the emergency department couple days ago for generalized abdominal discomfort and not feeling well in inability to eat. Subsequently was discharged home. She was continued to drink since that visit. She was here with her mother. Patient states she was going through ?DTs? she describes these symptoms has not feeling well, shaking and a fast heart rate. She states that her last drink was yesterday but she was unsure when this was. She states she can not eat not because of nausea or abdominal pain but just because ?things do not taste good? she was able to eat some grapes last evening. Related Data Previous Rx's Medication Instructions Recorded oxycodone 5 mg tablet 5 mg PO Q4H PRN pain #10 tabs 07/27/20 fluconazole 150 mg tablet 150 mg PO ONCE #1 tab 10/03/20 (Diflucan) phenazopyridine 100 mg tablet 100 mg PO TID PRN pain 6 doses #6 10/03/20 (Pyridium) tabs nitrofurantoin 100 mg PO Q12H 5 days #10 caps 12/03/23 monohydrate/macrocrystals 100 mg capsule (Macrobid) ondansetron 4 mg disintegrating 4 mg PO Q6H PRN nausea and 12/03/23 tablet vomiting #14 tabs Allergies Allergy/AdvReac Type Severity Reaction Status Date / Time Sulfa (Sulfonamide Allergy Verified 11/30/23 15:47 Antibiotics) Review of Systems Review of Systems ROS Unobtainable: All systems reviewed & are unremarkable except as noted in HPI and below Patient History Medical History UTI (urinary tract infection) Chronic back pain (~2006) Chicken pox (~1978) Abdominal pain Surgical History (Updated 07/21/20 @ 20:24 by Ida Villalobos) Anesthesia History of umbilical hernia repair (~1985) Social History Smoking Status: Current every day smoker Smoking Status: Current every day smoker alcohol intake frequency: 0-2 drinks per day Alcohol type: hard liquor Substance Use Type: marijuana Exam Initial Vital Signs Initial Vital Signs: Vital Signs Pulse Oximetry 96 12/03/23 10:51 HENMT Head: normal to inspection and normocephalic Resp Effort & Inspection: normal respiratory effort Auscultation: clear to auscultation bilaterally Cardio Rate: tachycardic Rhythm: regular rhythm GI Inspection: normal to inspection and non-distended Skin General: no rashes or lesions noted Neuro General: patient alert, patient awake, patient oriented x3 and moves all extremities Extrem General: normal to inspection Course Orders Ordered: ED Orders 12/03/23 11:05 Complete Blood Count AUTO DIFF Stat Comprehensive Metabolic Panel Stat Ethanol (ETOH) Stat 12/03/23 11:08 EKG-12 Lead Stat Discontinued Medications Sodium Chloride (Normal Saline 0.9%) 1,000 mls @ 1,000 mls/hr IV BOLUS ONE Stop: 12/03/23 12:06 Last Infusion: 12/03/23 12:38 Dose: Infused Documented By: Admin: 12/03/23 11:26 Dose: 1,000 mls/hr Documented By: DEVIN Thiamine HCl 100 mg/ Sodium (Chloride) 101 mls @ 404 mls/hr IV NOW ONE Stop: 12/03/23 11:08 Last Infusion: 12/03/23 11:56 Dose: Infused Documented By: Admin: 12/03/23 11:27 Dose: 404 mls/hr Documented By: DEVIN Ondansetron HCl (Ondansetron 4 Mg/2 Ml Inj) 4 mg IV NOW ONE Stop: 12/03/23 11:08 Last Admin: 12/03/23 11:26 Dose: 4 mg Documented By: DEVIN Pantoprazole Sodium (Pantoprazole 40 Mg Vial) 40 mg IV NOW ONE Stop: 12/03/23 11:08 Last Admin: 12/03/23 11:39 Dose: 40 mg Documented By: MAYUR Vital Signs Vital signs: Vital Signs - 8 hr 12/03/23 10:51 12/03/23 10:54 12/03/23 10:54 Temperature Pulse Rate 131 H Respiratory Rate Blood Pressure 186/106 H Pulse Oximetry 96 97 Oxygen Delivery Method 12/03/23 11:00 12/03/23 11:00 12/03/23 11:07 Temperature 98.4 F Pulse Rate 121 H 121 H Respiratory Rate 19 17 Blood Pressure 179/82 H 179/82 H Pulse Oximetry 96 99 Oxygen Delivery Method Room Air 12/03/23 11:30 12/03/23 11:30 12/03/23 11:59 Temperature Pulse Rate 109 H Respiratory Rate 21 Blood Pressure 170/81 H 164/91 H Pulse Oximetry 100 Oxygen Delivery Method 12/03/23 11:59 12/03/23 12:00 12/03/23 12:01 Temperature Pulse Rate 104 H 104 H 103 H Respiratory Rate 14 15 14 Blood Pressure Pulse Oximetry 100 99 100 Oxygen Delivery Method 12/03/23 12:01 12/03/23 12:30 12/03/23 12:30 Temperature Pulse Rate 98 H Respiratory Rate 14 Blood Pressure 153/87 H 168/94 H Pulse Oximetry 100 Oxygen Delivery Method 12/03/23 12:52 Temperature Pulse Rate 99 H Respiratory Rate 14 Blood Pressure 168/94 H Pulse Oximetry 100 Oxygen Delivery Method Room Air Medical Decision Making Lab Data 12/03/23 11:05 12/03/23 11:05 Labs: Lab Results 12/03/23 Range/Units 11:05 WBC 6.3 (4.5-11.0) X10^3/uL RBC 4.29 (4.0-5.2) X10^6/uL Hgb 13.6 (12.0-16.0) g/dL Hct 39.3 (36-46) % MCV 91.8 (80-100) fL MCH 31.7 (26-34) PG MCHC 34.5 (30-36) % RDW 14.6 (11.6-14.8) % Plt Count 174 (150-400) X10^3/uL Neut % (Auto) 58.8 (50-75) % Lymph % (Auto) 32.5 (25-40) % [place] % (Auto) 7.0 (3-14) % Eos % (Auto) 0.4 L (2-4) % Baso % (Auto) 1.3 (0-2) % Neut # (Auto) 3700 (7159-5740) /uL Lymph # (Auto) 2000 (2167-7416) /uL [place] # (Auto) 400 (0-900) /uL Eos # (Auto) 0 (0-450) /uL Baso # (Auto) 100 (0-100) /uL Sodium 135 L (137-145) mmol/L Potassium 3.1 L D (3.4-5.1) mmol/L Chloride 102 (98-107) mmol/L Carbon Dioxide 23 (22-32) mmol/L BUN 10 (7-17) mg/dL Creatinine 0.76 (0.52-1.04) mg/dL Estimated GFR > 60 (>60) mL/min BUN/Creatinine Ratio 13.2 (6-22) Glucose 145 H (70-100) mg/dL Calcium 8.7 (8.4-10.2) mg/dL Total Bilirubin 1.0 (0.2-1.3) mg/dL AST 84 H (14-36) IU/L ALT 43 H (<35) IU/L Alkaline Phosphatase 70 (38-126) U/L Total Protein 6.6 (6.3-8.2) g/dL Albumin 4.1 (3.5-5.0) g/dL Globulin 2.5 (1.7-4.1) g/dL Albumin/Globulin Ratio 1.6 (1.0-2.8) Ethyl Alcohol 76 H ( - 10) mg/dL ECG Data Attestation: I personally reviewed and interpreted this ECG as follows: Interpretation: Sinus tachycardia Ventricular rate of 122 Normal axis Normal QRS Normal QTC No ST T wave changes MDM Narrative Medical decision making narrative: Patient not actively in withdrawal. Alcohol level is just below legal limit. Patient was alert and oriented. Is tolerating oral intake. Informed her that unfortunately I could not help with making food taste better and that she was just going to need to eat something in order to stay hydrated and give her energy. Recommended that she continue to cut back on her alcohol use. She declined the offer for transfer to detox facility today. Will send home with nausea medication. She was here a couple days ago she had a urine sample obtained. Culture results showed that she does have a urinary tract infection. She was not having any symptoms but will send home on antibiotics based on the culture. Patient was discharged home with family. Discharge Plan Departure Patient Disposition: Home Clinical Impression: Urinary tract infection, Decreased appetite, Alcohol use Instructions: DI for Urinary Tract Infection (UTI), DI for Alcohol Use Disorder Activity Restrictions/Additional Instructions: I continue to encourage you to decrease the amount of alcohol that you were drinking. No driving for the next 24 hours. Take the antibiotics as directed. Return to the emergency department for new symptoms. Prescriptions: New ondansetron 4 mg tablet,disintegrating 4 mg PO Q6H PRN (Reason: nausea and vomiting) Qty: 14 0RF nitrofurantoin monohyd/m-cryst [Macrobid] 100 mg capsule 100 mg PO Q12H 5 Days Qty: 10 0RF Rx Instructions: must administer with a meal/food No Action phenazopyridine [Pyridium] 100 mg tablet 100 mg PO TID PRN (Reason: pain) 0 Days Qty: 6 0RF fluconazole [Diflucan] 150 mg tablet 150 mg PO ONCE Qty: 1 0RF Rx Instructions: as a single dose oxycodone 5 mg tablet 5 mg PO Q4H PRN (Reason: pain) Qty: 10 0RF Referrals: Moon Sanchez ARNP [Primary Care Provider] - Stand Alone Forms: Patient Portal/API
[2023-12-03 11:25] LABS: Add Manual Diff / Slide Review NO; Basophils Absolute Auto 100 /uL (0-100); Basophils Percent Auto 1.3 % (0-2); Eosinophils Absolute Auto 0 /uL (0-450); Eosinophils Percent Auto 0.4 % (2-4); Hematocrit 39.3 % (36-46); Hemoglobin 13.6 g/dL (12.0-16.0); Lymphocytes Absolute Auto 2000 /uL (1100-4500); Lymphocytes Percent Auto 32.5 % (25-40); Mean Corpuscular HGB Conc 34.5 % (30-36); Mean Corpuscular Hemoglobin 31.7 PG (26-34); Mean Corpuscular Volume 91.8 fL (80-100); Monocytes Absolute Auto 400 /uL (0-900); Neutrophils Absolute Auto 3700 /uL (1500-7000); Neutrophils Percent Auto 58.8 % (50-75); Platelet Count 174 X10^3/uL (150-400); Red Blood Cell Count 4.29 X10^6/uL (4.0-5.2); Red Cell Distribution Width 14.6 % (11.6-14.8); White Blood Cell Count 6.3 X10^3/uL (4.5-11.0)
[2023-12-03] MEDS: ONDANSETRON 4 MG/2 ML INJ IV (11:26)
[2023-12-03] MEDS: SODIUM CHLORIDE 0.9% 1,000 ML 1000 ML IV (11:26)
[2023-12-03] MEDS: THIAMINE 100 MG in SODIUM CHLORIDE 0.9% 100 ML 404 MG IV (11:27)
[2023-12-03] MEDS: PANTOPRAZOLE 40 MG VIAL IV (11:39)
[2023-12-03 11:45] LABS: Alanine Aminotransferase 43 IU/L (<35); Albumin 4.1 g/dL (3.5-5.0); Albumin Globulin Ratio 1.6 (1.0-2.8); Alkaline Phosphatase 70 U/L (38-126); Aspartate Aminotransferase 84 IU/L (14-36); BUN Creatinine Ratio 13.2 (6-22); Blood Urea Nitrogen 10 mg/dL (7-17); Calcium 8.7 mg/dL (8.4-10.2); Carbon Dioxide 23 mmol/L (22-32); Chloride 102 mmol/L (98-107); Estimated Glomerular Filt Rate > 60 mL/min (>60); Ethanol (ETOH) 76 mg/dL; Globulin 2.5 g/dL (1.7-4.1); Glucose 145 mg/dL (70-100); HEMOLYSIS 26 (0-50); Potassium 3.1 mmol/L (3.4-5.1); Sodium 135 mmol/L (137-145); Total Protein 6.6 g/dL (6.3-8.2)
== END 2023-12-03 12:55 | disposition home or self-care (01) ==
PROVIDERS: Emergency Provider Emergency Medicine; PCP Nurse Practitioner Family
DX: N39.0 Urinary tract infection, site not specified (principal); R63.0 Anorexia; F10.90 Alcohol use, unspecified, uncomplicated; Y90.3 Blood alcohol level of 60-79 mg/100 ml
CPT/HCPCS: 36415; 80053; 80320; 85025; 93005; 96365; 96375; 99284; J2405; J2470

== ENCOUNTER 2024-01-30 11:49 | Emergency (ER) | payer OTHER, SELFPAY ==
[2024-01-30 11:56] VITALS: BP 135/80; PULSE 139; RESP 15; TEMP 36.7; O2SAT 96; BMI 24.3
--- NOTE | 2024-01-30 12:13 | ED_ITS ---
HPI - Fall General Chief Complaint: Fall Stated Complaint: fall, eye injury t-7 Time Seen by Provider: 01/30/24 12:00 Source: patient Mode of arrival: Ambulatory History of Present Illness HPI Narrative: 48-year-old female presents for evaluation of left facial bruising and blood around the left eye. Patient states that she fell getting out of bed 1 week ago and struck her face against the corner of a dresser. Vision is unchanged. Also reporting withdrawing from alcohol. states that she drinks 4-5 glasses of alcohol daily, last drink last night. Already has plans in place for outpatien tdetox. Feeling slightly anxious and shaky. Related Data Previous Rx's Medication Instructions Recorded oxycodone 5 mg tablet 5 mg PO Q4H PRN pain #10 tabs 07/27/20 fluconazole 150 mg tablet 150 mg PO ONCE #1 tab 10/03/20 (Diflucan) phenazopyridine 100 mg tablet 100 mg PO TID PRN pain 6 doses #6 10/03/20 (Pyridium) tabs ondansetron 4 mg disintegrating 4 mg PO Q6H PRN nausea and 12/03/23 tablet vomiting #14 tabs chlordiazepoxide HCl 25 mg capsule 25 mg PO DIRECTED #15 caps 01/30/24 chlordiazepoxide HCl 25 mg capsule 25 mg PO DIRECTED #15 caps 01/30/24 Allergies Allergy/AdvReac Type Severity Reaction Status Date / Time Sulfa (Sulfonamide Allergy Verified 01/30/24 11:56 Antibiotics) Patient History Medical History UTI (urinary tract infection) Chronic back pain (~2006) Chicken pox (~1978) Abdominal pain Surgical History Anesthesia History of umbilical hernia repair (~1985) Social History Smoking Status: Current every day smoker Smoking Status: Current every day smoker alcohol intake frequency: 3 or more drinks per day Alcohol type: hard liquor Substance Use Type: marijuana Exam Initial Vital Signs Initial Vital Signs: Vital Signs Temperature 98.0 F 01/30/24 11:56 Pulse Rate 139 H 01/30/24 11:56 Respiratory Rate 15 01/30/24 11:56 Blood Pressure 135/80 01/30/24 11:56 Pulse Oximetry 96 01/30/24 11:56 Oxygen Delivery Method Room Air 01/30/24 11:56 Const: Awake, alert, no acute distress, nontoxic appearing HEENT: Bruising bilateral cheek bones, subconjunctival hemorrhage R eye. PERRL, EOMI Cardiac: tachycardia, regular rhythm RESP: unlabored, clear bilaterally, no wheezing Skin: Warm, Dry, intact, no rashes Neuro: AO x3, CN II-XII grossly intact, moves all extremities Course Orders Ordered: Discontinued Medications Chlordiazepoxide HCl (Chlordiazepoxide 25 Mg Capsule) 50 mg PO NOW ONE Stop: 01/30/24 13:08 Last Admin: 01/30/24 13:17 Dose: 50 mg Documented By: JOSE ANGEL Vital Signs Vital signs: Vital Signs - 8 hr 01/30/24 11:56 01/30/24 13:22 Temperature 98.0 F Pulse Rate 139 H 124 H Respiratory Rate 15 16 Blood Pressure 135/80 147/82 H Pulse Oximetry 96 99 Oxygen Delivery Method Room Air Room Air MDM - Fall Imaging Data CT scan - head: Radiologist's Impression: PROCEDURE: CT FACIAL BONES WO CON INDICATIONS: FALL 1 WK AGO, PERIORBITAL BRUISING TECHNIQUE: Noncontrast 2.5 mm thick axial images acquired from the mandible through the frontal sinuses, with coronal and sagittal reformatting. For radiation dose reduction, the following was used: automated exposure control, adjustment of mA and/or kV according to patient size. COMPARISON: [facility], CT, CT HEAD WITHOUT CONTRAST, 01/14/2021, 18:32. FINDINGS: Image quality: Excellent. Bones and teeth: Orbital sumner are intact. Sinus sumner show no fracture or deformity. There is a chronic comminuted nasal bone fracture which was present in 2020. Visualized portions of the mandible demonstrate no fractures or subluxation. Zygomatic a rches are intact. Pterygoid plates are intact. Visualized portions of the skull base and auditory canals are intact. Sinuses: Paranasal sinuses are aerated, without fluid levels, mucosal thic kening, or mucoceles. Mastoid air cells are aerated. Soft tissues: No edema, masses, or fluid collections. No enlarged lymph nodes. No soft tissue lacerations or debris. Vascular: Visualized vascular structures appear normal in the absence of contrast. Bony vascular foramina and canals are intact. IMPRESSION: 1. Globes and orbits intact. 2. No acute facial bone fracture or mandibular fracture. 3. Chronic nasal bone fracture. Dictated by: Nirmal Welsh M.D. on 01/30/2024 at 12:54 Approved by: Nirmal Welsh M.D. on 01/30/2024 at 12:58 [facility] Narrative Medical decision making narrative: Patient presenting for evaluation of facial injury after falling. Patient has bruising over her cheek bones and what appears to be a subconjunctival hemorrhage on her right eye, but vision is unchanged, pupils are equal and reactive, no evidence of entrapment, no active bleeding. Patient initially tachycardic on arrival, she states that her last drink of alcohol was last night and she feels anxious and shaky off of alcohol. Patient has been seen in his emergency department twice recently with alcohol related complaints, she was tachycardic both visits with EKG sinus tachycardia. Patient spoke with social work, she does not want inpatient detox at this time, she already has plans in place for outpatient detox. Patient was given a dose of Librium in the emergency department and a taper was sent to patient's pharmacy of choice. She was encouraged to continue sobriety. Discharged with family. Discharge Plan Departure Patient Disposition: Home Clinical Impression: Contusion of face Instructions: DI for Eye Contusion Activity Restrictions/Additional Instructions: The Librium taper has been sent to the [facility] [place]. Make sure to eat a healthy diet and drink plenty of fluids. Prescriptions: New chlordiazepoxide HCl 25 mg capsule 25 mg PO DIRECTED Qty: 15 0RF Rx Instructions: Day 1: 50mg po q6h Day 2: 25mg po q6h Day 3: 25mg po q12h Day 4: 25mg po at night chlordiazepoxide HCl 25 mg capsule 25 mg PO DIRECTED Qty: 15 0RF Rx Instructions: Day 1: 50mg q6h Day 2: 25mg q6h Day 3: 25mg q12h Day 4: 25mg at night No Action phenazopyridine [Pyridium] 100 mg tablet 100 mg PO TID PRN (Reason: pain) 0 Days Qty: 6 0RF fluconazole [Diflucan] 150 mg tablet 150 mg PO ONCE Qty: 1 0RF Rx Instructions: as a single dose oxycodone 5 mg tablet 5 mg PO Q4H PRN (Reason: pain) Qty: 10 0RF ondansetron 4 mg tablet,disintegrating 4 mg PO Q6H PRN (Reason: nausea and vomiting) Qty: 14 0RF Referrals: Moon Sanchez ARNP [Primary Care Provider] - Stand Alone Forms: Patient Portal/API
--- NOTE | 2024-01-30 12:46 | CM.SWNOTE ---
ED PORK C[employer]LET [employer]ER Note PORK CUTLET MAKER receives consult regarding [facility] resources. Patient had similar presentation on 11/30/23 and was seen by MISA Floyd. Patient is 48 y/o female who presents to the ED due to concern for recent GLF while on the influence of ETOH. Patient endorses concern for ETOH withdrawal. PORK CUTLET MAKER enters room to meet with patient, present in room is patient's mother and daughter, patient gives consent for them to be present. Patient presents as A/Ox4. Patient and patient's daughter endorse that daughter took patient to daughter's therapist appt due to daughter's concerns for patient. It is reported that family and patient identified plan for patient to detox at home and stay with patient's mother, hopeful that ED provider can prescribe withdrawal medication and plan to contact [facility] for intake appt and plans to go to [place] for inpatient rehab. Patient endorses she was laid off earlier this month from her job at [employer]. Patient endorses that has been an added stressor. Patient states her last drink was at 2300 last night, patient states she drank an airplane bottle of Bacardi. Patient states on average she drinks 4-5 of those airplane bottles daily. PORK CUTLET MAKER discusses detox and patient states that she has worked at or knows people at all local detox facilities, and patient endorses hx of bad experience at [facility] detox and does not want to go there. Patient endorses preference to detox at home at mother's house. Patient endorses hx of shakiness and lack of appetite in regards to her withdrawal symptoms. Patient endorses her longest period of sobriety was for 4 years when she had to do daily UAs motivated to maintain parental rights of her kids. Patient denies SI and HI. Patient presents with motivation to stop drinking due to the support of her mother and daughter and the desire to keep living. Patient states she has been receiving unemployment since she was laid off and had thoughts of moving, and does not endorse immediate plans to seek employment. P[employer] C[employer]LET MAKER encourages patient's plan to seek sobriety through the support of family, outpatient [facility] provider assessment and referral to inpatient. Plan: patient to d/c to home upon medical clearance with family, patient to stay with mother while withdrawing from ETOH, family to assist bringing patient to [facility] intake appt to seek inpatient referral. P[employer] CUTLET MAKER provides patient with [facility] resources. ISAC OgSW
[2024-01-30] MEDS: chlordiazePOXIDE 25 MG CAPSULE 50 MG PO (13:17)
[2024-01-30 13:22] VITALS: BP 147/82; PULSE 124; RESP 16; O2SAT 99
== END 2024-01-30 13:22 | disposition home or self-care (01) ==
PROVIDERS: Emergency Provider Emergency Medicine; PCP Nurse Practitioner Family
DX: S00.83XA Contusion of other part of head, initial encounter (principal); R00.0 Tachycardia, unspecified; W06.XXXA Fall from bed, initial encounter
CPT/HCPCS: 70486; 99283; 99284

== ENCOUNTER → 2025-03-12 11:46 | Outpatient (CLI) | payer OTHER, SELFPAY | PROVIDERS: Visit Provider Nurse Practitioner Family | DX: R30.0 Dysuria (principal) | CPT/HCPCS: 87086 ==